=== PATIENT | female | born 1935 | race Caucasian/White ===

== ENCOUNTER 2020-07-14 19:33 | Emergency (ER) | payer MEDICARE, OTHER, MEDICAID, SELFPAY ==
--- NOTE | 2020-07-14 | ECG_ITS ---
Test Reason : SYNCOPE Blood Pressure : / mmHG Vent. Rate : 077 BPM Atrial Rate : 077 BPM P-R Int : 140 ms QRS Dur : 108 ms QT Int : 420 ms P-R-T Axes : 055 -44 053 degrees QTc Int : 475 ms Sinus rhythm with marked sinus arrhythmia Left axis deviation Incomplete right bundle branch block Nonspecific T wave abnormality Prolonged QT Abnormal ECG When compared with ECG of 19-NOV-2019 09:03, No significant change was found Referred By: Generic ED Physician Electronically Signed By:David Chan
[2020-07-14 19:46] VITALS: BP 146/83; BP 169/104; PULSE 76; PULSE 87; RESP 20; TEMP 36.7; O2SAT 98; BMI 32.4
--- NOTE | 2020-07-14 20:19 | XR_ITS ---
EXAMINATION: XR CHEST CLINICAL INFORMATION: Chest pain COMPARISON: 12/11/2017 TECHNIQUE: Frontal view of the chest was obtained. FINDINGS: No significant abnormality is noted involving the heart, lungs, mediastinum, bony thorax or soft tissues. Again noted is prominent costochondral calcification on the right. The aorta demonstrates dense mural calcification. XR/XR chest 1V IMPRESSION: No acute intrathoracic disease.
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
[2020-07-14 21:08] LABS: MANUAL DIFF FLAG NO
[2020-07-14 21:10] LABS: Basophils Absolute Auto 0.1 X10*3/uL (0.0-0.2); Basophils Percent Auto 0.9 % (0-2); Eosinophils Absolute Auto 0.6 X10*3/uL (0.0-0.4); Eosinophils Percent Auto 4.9 % (0-4); Hematocrit 40.1 % (37-47); Hemoglobin 12.8 g/dl (12.0-16.0); Imm Gran Abs Auto 0.03 X10*3/uL (0.00-0.03); Imm Gran Pct Auto 0.2 % (0.0-0.4); Lymphocytes Absolute Auto 1.5 X10*3/uL (1.2-4.9); Mean Corpuscular HGB Conc 31.9 g/dl (31.0-35.0); Mean Corpuscular Hemoglobin 30.5 pg (27.0-33.0); Mean Corpuscular Volume 95.5 fL (80-98); Mean Platelet Volume 11.3 fL (9.4-12.3); Monocytes Absolute Auto 1.2 X10*3/uL (0.1-1.2); Monocytes Percent Auto 9.4 % (2-11); Neutrophils Percent Auto 72.6 % (45-73); Platelet Count 236 X10*3/uL (160-400); Red Cell Distribution Width 13.9 % (11.0-16.0); White Blood Count 12.3 X10*3/uL (4.8-10.8)
[2020-07-14 21:31] LABS: Anion Gap 13 (12-20); Blood Urea Nitrogen 21 mg/dL (9-16); Calcium 8.4 mg/dL (8.4-10.2); Carbon Dioxide 30 mmol/L (22-29); Chloride 104 mmol/L (96-108); Creatinine Clr Calc Pharmacy 36.1; Estimated Glomerular Filt Rate 44; Glucose Random 110 mg/dL (60-115); Sodium 143 mmol/L (135-145)
[2020-07-14 21:37] LABS: Troponin-I High Sensitivity 16.4 ng/L (<3.5-17.0)
== END 2020-07-14 22:41 | disposition home or self-care (01) ==
PROVIDERS: Emergency Provider Internal Medicine
DX: R07.9 Chest pain, unspecified (principal); F41.9 Anxiety disorder, unspecified; S50.812A Abrasion of left forearm, initial encounter; Y04.2XXA Assault by strike against or bumped into by another person, initial encounter; I10 Essential (primary) hypertension; F03.91 Unspecified dementia, unspecified severity, with behavioral disturbance; Y93.9 Activity, unspecified; Y92.019 Unspecified place in single-family (private) house as the place of occurrence of the external cause; Y99.9 Unspecified external cause status
CPT/HCPCS: 36415; 71045; 80048; 84484; 85025; 93005; 99283

== ENCOUNTER 2020-07-16 06:04 | Emergency (ER) | payer MEDICARE, OTHER, MEDICAID, SELFPAY ==
[2020-07-16 06:20] VITALS: BP 160/90; PULSE 70; RESP 18; TEMP 36.2; O2SAT 99; BMI 25.6
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
--- NOTE | 2020-07-16 06:44 | ECG_ITS ---
Test Reason : WEAKNESS Blood Pressure : / mmHG Vent. Rate : 059 BPM Atrial Rate : 059 BPM P-R Int : 134 ms QRS Dur : 102 ms QT Int : 466 ms P-R-T Axes : 046 -41 039 degrees QTc Int : 461 ms Sinus bradycardia Left axis deviation Incomplete right bundle branch block Septal infarct , age undetermined Abnormal ECG When compared with ECG of 14-JUL-2020 20:01, Septal infarct is now Present Nonspecific T wave abnormality now evident in Inferior leads Inverted T waves have replaced nonspecific T wave abnormality in Lateral leads Referred By: Guy Ramirez Electronically Signed By:David Chan
[2020-07-16 07:52] LABS: Prothrombin Time 12.1 SEC (10.8-13.0)
[2020-07-16 07:54] LABS: Partial Thromboplastin Time 32.8 SEC (24.1-38.0)
[2020-07-16 08:14] LABS: Troponin-I High Sensitivity 16.4 ng/L (<3.5-17.0)
[2020-07-16 09:10] LABS: Glucose Urine UA NEG (NEG); Leukocyte Esterase Urine 2+ (NEG); Nitrite Urine POS (NEG); Urine Blood NEG (NEG); Urine Ketones NEG (NEG); Urine Protein NEG (NEG-TRACE)
[2020-07-16 09:17] LABS: Appearance Urine HAZY; Color Urine YELLOW
[2020-07-16 09:25] LABS: Bacteria Urine 4+ /LPF; RBC Urine 0-2 /HPF (0); Squamous Epithelial Cell Urine 2+ /LPF; WBC Urine 30-49 /HPF (0-4)
[2020-07-16 10:44] LABS: MANUAL DIFF FLAG NO
[2020-07-16 10:50] VITALS: BP 188/72; PULSE 83; RESP 17; TEMP 37.6; O2SAT 94
[2020-07-16 10:59] LABS: Basophils Absolute Auto 0.1 X10*3/uL (0.0-0.2); Basophils Percent Auto 0.6 % (0-2); Eosinophils Absolute Auto 0.7 X10*3/uL (0.0-0.4); Eosinophils Percent Auto 5.2 % (0-4); Imm Gran Abs Auto 0.04 X10*3/uL (0.00-0.03); Imm Gran Pct Auto 0.3 % (0.0-0.4); Lymphocytes Absolute Auto 1.7 X10*3/uL (1.2-4.9); Lymphocytes Percent Auto 13.5 % (20-40); Mean Corpuscular Hemoglobin 29.4 pg (27.0-33.0); Mean Platelet Volume 11.8 fL (9.4-12.3); Monocytes Absolute Auto 1.2 X10*3/uL (0.1-1.2); Monocytes Percent Auto 9.9 % (2-11); Neutrophils Absolute Auto 8.8 X10*3/uL (2.0-8.3); Neutrophils Percent Auto 70.5 % (45-73); Platelet Count 228 X10*3/uL (160-400); Red Blood Count 4.42 X10*6/uL (4.20-5.50); White Blood Count 12.5 X10*3/uL (4.8-10.8)
[2020-07-16 11:07] LABS: COVID-19 Test Negative (Negative)
[2020-07-16 11:13] VITALS: PULSE 96; RESP 16; O2SAT 97
[2020-07-16 11:27] LABS: Anion Gap 14 (12-20); Blood Urea Nitrogen 19 mg/dL (9-16); Calcium 8.8 mg/dL (8.4-10.2); Carbon Dioxide 27 mmol/L (22-29); Chloride 106 mmol/L (96-108); Creatinine Clr Calc Pharmacy 37.8; Estimated Glomerular Filt Rate 56; Glucose Random 104 mg/dL (60-115); Sodium 143 mmol/L (135-145)
[2020-07-16] MEDS: cefTRIAXone sodium 1 GM in 0.9 % Sodium Chloride 50 ML IV (11:30)
[2020-07-16 11:36] VITALS: BP 145/85; PULSE 65; RESP 17; TEMP 36.6; O2SAT 95
[2020-07-16 12:06] LABS: Lactic Acid 0.8 mmol/L (0.5-2.0)
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
--- NOTE | 2020-07-16 14:32 | MHC.CM.PN ---
Per conversation with pt son, referrals were placed to several intermediate facilities in the [facility] and [place] areas. All but one facility has declined the referral. [facility] will consider admission Saturday as they are not comfortable accepting pt on the weekend due to behaviors. More referrals to be placed. Pt will need SNF placement for STR likely to transition to LTC
--- NOTE | 2020-07-16 16:37 | MHC.CM.PN ---
CM CONTACTED PTS SON, VERNON TO PROVIDE UPDATES ON BED SEARCH. HE REPORTS HE IS WILLING TO HAVE PT PLACED FARTHER AWAY TO FIND A GOOD FACILITY AND WOULD PREFER ONE WITH MEMORY CARE SERVICES. REFERRAL SENT TO SEVERAL MORE FACILITIES. CM TO RESUME BED SEARCH TOMORROW MORNING
--- NOTE | 2020-07-16 19:06 | PC.NURSE ---
REPORT TAKEN FROM ALLY BERNAL, FIRST CONTACT WITH PT. SITTING UP IN BED SKIN PWD RESPIRATIONS EVEN UNLABORED, NO COMPLAINTS AT THIS TIME. CASE MANAGEMENT BEDSEARCH. GIVEN SNACK AND PO FLUIDS. WILL CONTINUE TO MONITOR.
[2020-07-16 20:00] VITALS: RESP 16
--- NOTE | 2020-07-16 21:10 | PC.NURSE ---
PT TEARFUL ABOUT BEING ALONE IN HOSPITAL- OFFERED TO CALL FAMILY. STEPHENIE LUGO COULD NOT HEAR RN ON PHONE. THIS RN SPOKE WITH SON VERNON WHO EXPRESSED CONCERN THAT SPEAKING WITH HER MAY EXACERBATE THE SITUATION. RN SPOKE WITH YONG AND REASSURED HER SUCCESSFULLY. MEDICATED WITH PO ABX. ATE 100% OF SANDWICH AND PUDDING.
[2020-07-16 22:00] VITALS: RESP 16
[2020-07-17 02:00] VITALS: BP 167/83; PULSE 73; RESP 16; TEMP 37.2; O2SAT 97
--- NOTE | 2020-07-17 02:03 | PC.NURSE ---
IV ACCESS REMOVED PER PT REQUEST.
--- NOTE | 2020-07-17 02:46 | PC.NURSE ---
PT RESTING IN BED SKIN PWD RESPIRATIONS EVEN UNLABORED. VSS. NO COMPLAINTS AT THIS TIME. CASE MANAGEMENT BED SEARCH.
--- NOTE | 2020-07-17 04:58 | PC.NURSE ---
PT MOVED TO RM 17 FOR COMFORT. NEW BEDDING PROVIDED, REPOSITIONED FOR COMFORT. LIGHTS TURNED DOWN. OFFERS NO COMPLAINTS AT THIS TIME.
--- NOTE | 2020-07-17 05:59 | PC.NURSE ---
PT RESTING IN BED EYES CLOSED, SKIN PWD RESPIRATIONS EVEN UNLABORED, NO DISTRESS NOTED. AWAITS CM BED.
--- NOTE | 2020-07-17 07:26 | PC.NURSE ---
report taken from jesenia eng pt lying in stretcher, nad. asking to be put on bed, transferred to commode w one assist. put back in stretcher, given breakfast. eating on own without issues. pt is awaiting case mgmt eloy.
--- NOTE | 2020-07-17 07:57 | PC.NURSE ---
pt cleaned of incontinent loose bm. able to help reposition, skin appears in tact.
[2020-07-17] MEDS: predniSONE 5 MG TABLET PO (08:49)
[2020-07-17] MEDS: DULoxetine HCl 30 MG CAPSULE.DR PO ×2 (08:49→20:31)
[2020-07-17] MEDS: Atorvastatin Calcium 40 MG TABLET PO (08:49)
[2020-07-17] MEDS: Donepezil HCl 5 MG TABLET PO (08:49)
--- NOTE | 2020-07-17 08:54 | PC.NURSE ---
medicated w meds per emar, tolerating po w/o issue. pt pleasently confused, frequently asking when she will see the doctor . pt redirected about case mgmt status and requires frequent redirection. pt calmly watching tv in stretcher. juan carlos.
--- NOTE | 2020-07-17 11:14 | PC.NURSE ---
pt cleaned of small amount incontinent bm, linens changed. pt boosted back up in stretcher, repositioned to r side using pillows.
--- NOTE | 2020-07-17 12:42 | PC.NURSE ---
pt pivoted over to commode w 1 assist for void. back to bed w/o incident.
[2020-07-17 19:25] VITALS: BP 187/78; PULSE 77; RESP 20; TEMP 36.7; O2SAT 95
--- NOTE | 2020-07-17 19:26 | PC.NURSE ---
Report taken from jen Flores RN resuming care. Pt requesting to use the bedpan, pt voiding a small brown liquid stool. Pt provided shabbir care and a complete bed change. Pt resting in bed, VSS, BP noted to be elevated. Warm blanket provided for comfort. Continue to monitor.
--- NOTE | 2020-07-17 20:18 | PC.NURSE ---
MD Pulido aware of HTN, plan to monitor BP at this time as pt is asymptomatic.
--- NOTE | 2020-07-17 20:33 | PC.NURSE ---
Pt medicated per MAR.
[2020-07-17 21:24] VITALS: BP 189/94; PULSE 83; RESP 16
[2020-07-17 22:45] VITALS: BP 193/124; PULSE 103; RESP 20; O2SAT 95
--- NOTE | 2020-07-17 22:51 | PC.NURSE ---
This RN discussing elevated BP with pt, pt reporting a history of HTN, states she takes medication for it but unsure of what. Pt telling this RN Do not call my this late! He would be so mad!! This RN discussing care with pharm, per pharmacy, pt had a script for Losartan 25 mg but the prescription in February.
[2020-07-17 23:23] VITALS: BP 193/127; PULSE 98
[2020-07-17] MEDS: Losartan Potassium 25 MG TABLET PO (23:23)
--- NOTE | 2020-07-17 23:25 | PC.NURSE ---
Pt requesting to use the commode, two assist OOB and onto commode, pt extremely weak, unable to stand on her own. Pt voiding in commode, watery brown colored stool. Pt reports diarrhea intermittently throughout the day today. This RN discussing HTN with , pt medicated with Losartan per SEP. Continue to monitor.
[2020-07-18] VITALS (7 sets, daily range): BP systolic 114–183; BP diastolic 75–95; PULSE 74–93; RESP 16–20; O2SAT 93–95
--- NOTE | 2020-07-18 05:20 | PC.NURSE ---
Pt assisted OOB onto commode, voiding easily. Pt provided with a complete bed changed, assisted back into bed into POC. VSS, continue to monitor.
--- NOTE | 2020-07-18 07:08 | ED.CHESTPAIN ---
HPI - Chest Pain General Chief Complaint: Chest Pain Stated Complaint: chest pain Time Seen by Provider: 07/16/20 06:40 Source: patient and EMS Mode of arrival: EMS Limitations: altered mental status (Dementia) Related Data Home Medications Medication Instructions Recorded Confirmed atorvastatin 1 tab PO DAILY 07/17/20 07/17/20 donepezil 1 tab PO DAILY 07/17/20 07/17/20 duloxetine 1 cap PO BID 07/17/20 07/17/20 prednisone 5 tab PO QAM 07/17/20 07/17/20 Previous Rx's Medication Instructions Recorded cefuroxime axetil 500 mg PO BID 3 Days #6 tab 07/16/20 Allergies Allergy/AdvReac Type Severity Reaction Status Date / Time yariel [YARIEL] Allergy Unknown HIVES Verified 07/14/20 19:52 PMFSH Past Medical History Medical History Hypertension Social History Social History Smoked in Last 30 Days: No Use of substances other than those prescribed or required for medical reasons: No Advance Directives: No Physical Exam Vital Signs: Vital Signs: Last Vital Signs Temp 98.1 F 07/17/20 19:25 Pulse 77 07/18/20 05:45 Resp 16 07/18/20 05:45 BP 183/85 H 07/18/20 05:45 Pulse Ox 93 07/18/20 05:45 Body Mass Index 25.6 Course Course Course Narrative: DR. RAMIREZ SAW PATIENT FROM BEGINNING I ASSUMED CARE ON 07/18/2020 - no acute events overnight, PO antibiotics for UTI culture so far GNR - VS stable, pending placement at this time MDM - Chest Pain Lab Data Result diagrams: 07/16/20 10:36 07/16/20 10:37 Labs: Lab Results 07/16/20 07/16/20 07/16/20 Range/Units 07:32 07:32 09:00 WBC (4.8-10.8) X10*3/uL RBC (4.20-5.50) X10*6/uL Hgb (12.0-16.0) g/dl Hct (37-47) % MCV (80-98) fL MCH (27.0-33.0) pg MCHC (31.0-35.0) g/dl RDW (11.0-16.0) % Plt Count (160-400) X10*3/uL MPV (9.4-12.3) fL Immature Gran % (Auto) (0.0-0.4) % Neut % (Auto) (45-73) % Lymph % (Auto) (20-40) % [place] % (Auto) (2-11) % Eos % (Auto) (0-4) % Baso % (Auto) (0-2) % Lymph # (Auto) (1.2-4.9) X10*3/uL [place] # (Auto) (0.1-1.2) X10*3/uL Eos # (Auto) (0.0-0.4) X10*3/uL Baso # (Auto) (0.0-0.2) X10*3/uL Abs Immat Gran (auto) (0.00-0.03) X10*3/uL Absolute Neuts (auto) (2.0-8.3) X10*3/uL Absolute Nucleated RBC (0.0-0.012) X10*3/uL Nucleated RBC % (auto) (0.0-0.2) /100WBC PT 12.1 (10.8-13.0) SEC INR 1.0 (0.9-1.1) APTT 32.8 (24.1-38.0) SEC Sodium (135-145) mmol/L Potassium (3.3-5.1) mmol/l Chloride (96-108) mmol/L Carbon Dioxide (22-29) mmol/L Anion Gap (12-20) BUN (9-16) mg/dL Creatinine (0.5-1.4) mg/dL Estim Creat Clear Calc Estimated GFR Random Glucose (60-115) mg/dL Lactic Acid (0.5-2.0) mmol/L Calcium (8.4-10.2) mg/dL Troponin I High Sens 16.4 (<3.5-17.0) ng/L Urine Color YELLOW Urine Appearance HAZY Urine pH 6.0 (5.0-8.0) Ur Specific [place] 1.020 (1.005-1.025) Urine Protein NEG (NEG-TRACE) MG/DL Urine Glucose (UA) NEG (NEG) MG/DL Urine Ketones NEG (NEG) MG/DL Urine Blood NEG (NEG) Urine Nitrite POS H (NEG) Ur Leukocyte Esterase 2+ H (NEG) Urine RBC 0-2 (0) /HPF Urine WBC 30-49 H (0-4) /HPF Ur Squamous Epith Cells 2+ /LPF Urine Bacteria 4+ /LPF COVID-19 (SUSAAN) (Negative) COVID-19 Clin Com 07/16/20 07/16/20 07/16/20 Range/Units 10:36 10:37 10:37 WBC 12.5 H (4.8-10.8) X10*3/uL RBC 4.42 (4.20-5.50) X10*6/uL Hgb 13.0 (12.0-16.0) g/dl Hct 42.0 (37-47) % MCV 95.0 (80-98) fL MCH 29.4 (27.0-33.0) pg MCHC 31.0 (31.0-35.0) g/dl RDW 14.0 (11.0-16.0) % Plt Count 228 (160-400) X10*3/uL MPV 11.8 (9.4-12.3) fL Immature Gran % (Auto) 0.3 (0.0-0.4) % Neut % (Auto) 70.5 (45-73) % Lymph % (Auto) 13.5 L (20-40) % [place] % (Auto) 9.9 (2-11) % Eos % (Auto) 5.2 H (0-4) % Baso % (Auto) 0.6 (0-2) % Lymph # (Auto) 1.7 (1.2-4.9) X10*3/uL [place] # (Auto) 1.2 (0.1-1.2) X10*3/uL Eos # (Auto) 0.7 H (0.0-0.4) X10*3/uL Baso # (Auto) 0.1 (0.0-0.2) X10*3/uL Abs Immat Gran (auto) 0.04 H (0.00-0.03) X10*3/uL Absolute Neuts (auto) 8.8 H (2.0-8.3) X10*3/uL Absolute Nucleated RBC 0.000 (0.0-0.012) X10*3/uL Nucleated RBC % (auto) 0.0 (0.0-0.2) /100WBC PT (10.8-13.0) SEC INR (0.9-1.1) APTT (24.1-38.0) SEC Sodium 143 (135-145) mmol/L Potassium 4.0 (3.3-5.1) mmol/l Chloride 106 (96-108) mmol/L Carbon Dioxide 27 (22-29) mmol/L Anion Gap 14 (12-20) BUN 19 H (9-16) mg/dL Creatinine 0.95 (0.5-1.4) mg/dL Estim Creat Clear Calc 37.8 Estimated GFR 56 Random Glucose 104 (60-115) mg/dL Lactic Acid (0.5-2.0) mmol/L Calcium 8.8 (8.4-10.2) mg/dL Troponin I High Sens (<3.5-17.0) ng/L Urine Color Urine Appearance Urine pH (5.0-8.0) Ur Specific [place] (1.005-1.025) Urine Protein (NEG-TRACE) MG/DL Urine Glucose (UA) (NEG) MG/DL Urine Ketones (NEG) MG/DL Urine Blood (NEG) Urine Nitrite (NEG) Ur Leukocyte Esterase (NEG) Urine RBC (0) /HPF Urine WBC (0-4) /HPF Ur Squamous Epith Cells /LPF Urine Bacteria /LPF COVID-19 (SUSANA) Negative (Negative) COVID-19 Clin Com See Note 07/16/20 Range/Units 11:24 WBC (4.8-10.8) X10*3/uL RBC (4.20-5.50) X10*6/uL Hgb (12.0-16.0) g/dl Hct (37-47) % MCV (80-98) fL MCH (27.0-33.0) pg MCHC (31.0-35.0) g/dl RDW (11.0-16.0) % Plt Count (160-400) X10*3/uL MPV (9.4-12.3) fL Immature Gran % (Auto) (0.0-0.4) % Neut % (Auto) (45-73) % Lymph % (Auto) (20-40) % [place] % (Auto) (2-11) % Eos % (Auto) (0-4) % Baso % (Auto) (0-2) % Lymph # (Auto) (1.2-4.9) X10*3/uL [place] # (Auto) (0.1-1.2) X10*3/uL Eos # (Auto) (0.0-0.4) X10*3/uL Baso # (Auto) (0.0-0.2) X10*3/uL Abs Immat Gran (auto) (0.00-0.03) X10*3/uL Absolute Neuts (auto) (2.0-8.3) X10*3/uL Absolute Nucleated RBC (0.0-0.012) X10*3/uL Nucleated RBC % (auto) (0.0-0.2) /100WBC PT (10.8-13.0) SEC INR (0.9-1.1) APTT (24.1-38.0) SEC Sodium (135-145) mmol/L Potassium (3.3-5.1) mmol/l Chloride (96-108) mmol/L Carbon Dioxide (22-29) mmol/L Anion Gap (12-20) BUN (9-16) mg/dL Creatinine (0.5-1.4) mg/dL Estim Creat Clear Calc Estimated GFR Random Glucose (60-115) mg/dL Lactic Acid 0.8 (0.5-2.0) mmol/L Calcium (8.4-10.2) mg/dL Troponin I High Sens (<3.5-17.0) ng/L Urine Color Urine Appearance Urine pH (5.0-8.0) Ur Specific [place] (1.005-1.025) Urine Protein (NEG-TRACE) MG/DL Urine Glucose (UA) (NEG) MG/DL Urine Ketones (NEG) MG/DL Urine Blood (NEG) Urine Nitrite (NEG) Ur Leukocyte Esterase (NEG) Urine RBC (0) /HPF Urine WBC (0-4) /HPF Ur Squamous Epith Cells /LPF Urine Bacteria /LPF COVID-19 (SUSANA) (Negative) COVID-19 Clin Com Discharge Plan Discharge Clinical Impression: Dementia Qualifiers: Dementia type: Alzheimer's Alzheimer's disease onset: late-onset Dementia behavioral disturbance: with behavioral disturbance Qualified Code(s): G30.1 - Alzheimer's disease with late onset UTI (urinary tract infection) Qualifiers: Urinary tract infection type: acute cystitis Hematuria presence: without hematuria Qualified Code(s): N30.00 - Acute cystitis without hematuria Patient Disposition: [facility] SNF Instructions: Alzheimer Disease (DC), Urinary Tract Infection in Older Adults (ED) Additional Instructions: Patient has possible UTI will give antibiotic for total 3 days Prescriptions: New cefuroxime axetil 500 mg tablet 500 mg PO BID 3 Days Qty: 6 RF: 0 No Action atorvastatin 40 mg tablet 1 tab PO DAILY RF: 0 donepezil 5 mg tablet 1 tab PO DAILY RF: 0 prednisone 1 mg tablet 5 tab PO QAM RF: 0 duloxetine 30 mg capsule,delayed release(DR/EC) 1 cap PO BID RF: 0
[2020-07-18] MEDS: Atorvastatin Calcium 40 MG TABLET PO (08:14)
[2020-07-18] MEDS: DULoxetine HCl 30 MG CAPSULE.DR PO (08:14)
[2020-07-18] MEDS: Donepezil HCl 5 MG TABLET PO (08:14)
[2020-07-18] MEDS: LORazepam 1 MG TABLET PO (08:14)
[2020-07-18] MEDS: predniSONE 5 MG TABLET PO (08:14)
--- NOTE | 2020-07-18 08:34 | PC.NURSE ---
Report from DOLORES Burrell. Pt remains confused, constantly screaming that she is . Medicated with Ativan for agitation along with scheduled am meds. Pt incontinent large amt loose stool. Changed, repositioned, currently resting comfortably on stretcher.
--- NOTE | 2020-07-18 14:41 | PC.NURSE ---
patient remains confused, resting quietly on stretcher. Tearful at times. Refused lunch. Awaiting disposition from case management
--- NOTE | 2020-07-18 15:16 | MHC.CM.ED ---
Pt very confused. Unable to speak with her for assessment. Spoke with son, Krishna ([phone]). Krishna tells CM that pt's dementia is worsening and his 87 y/o father can no longer care for pt. Pt has had some aggressive behaviors towards . None noted while in ED. PT recommended STR and Krishna is accepting. Has no requests. Referrals placed locally. HCP obtained from hospitalization at [facility] and scanned into allscripts
--- NOTE | 2020-07-18 15:35 | MHC.CM.ED ---
[facility] accepted pt. Message left with son, Krishna. Awaiting time to book ambulance. and RN aware
--- NOTE | 2020-07-18 16:10 | MHC.CM.ED ---
Second call placed to son Krishna with regards to placement at [facility] and transportation arranged for 5pm. Second Covid requested. Order taken. RN aware.
[2020-07-18 17:37] LABS: COVID-19 Test Negative (Negative)
== END 2020-07-18 18:02 | disposition skilled nursing facility (03) ==
PROVIDERS: Emergency Medicine; Emergency Provider Internal Medicine
DX: G30.1 Alzheimer's disease with late onset (principal); N30.00 Acute cystitis without hematuria; I10 Essential (primary) hypertension; Z20.822 Contact with and (suspected) exposure to COVID-19
CPT/HCPCS: 36415; 80048; 81001; 83605; 84484; 85025; 85610; 85730; 87040; 87086; 87088; 87186; 87635; 93005; 97161; 99284; J0696

== ENCOUNTER 2021-02-28 22:10 | Emergency (ER) | payer MEDICARE, OTHER, MEDICAID, SELFPAY ==
--- NOTE | ~2021-02-28 | XR_ITS ---
EXAMINATION: XR CHEST CLINICAL INFORMATION: Shortness of breath COMPARISON: 07/14/2020 TECHNIQUE: Frontal view of the chest was obtained. FINDINGS: Lung volumes are symmetric. There is subtle patchy opacity at the right base laterally. No evidence of pneumothorax, pleural effusion, or pulmonary edema. Cardiac size is within normal limits. Calcification is present at the aortic arch. No acute osseous findings are seen. XR/XR chest 1V IMPRESSION: Subtle patchy opacity at the lateral right base suggesting early developing consolidation in the proper clinical setting. Short-term radiographic follow-up would be helpful.
[2021-02-28 22:23] VITALS: BP 85/63; BP 92/61; PULSE 65; PULSE 67; RESP 18; TEMP 37.2; O2SAT 95; BMI 22.3
--- NOTE | 2021-02-28 22:27 | ED.SOB ---
HPI - SOB/Dyspnea General Chief Complaint: Dyspnea Stated Complaint: DIFFICULTY BREATHING Time Seen by Provider: 02/28/21 22:27 Source: RN notes reviewed Mode of arrival: EMS History of Present Illness HPI Narrative: Patient history of dementia , hypertension, weakness came from care home where she was admitted today as staff noticed patient has low blood pressure of 74/45 saturating 89% dropped to 77% on arrival patient was saturating 95% at room air denying any chest pain at this time no fever no cough no abdominal pain no nausea no vomiting. Patient is DNR DNI Related Data Home Medications Medication Instructions Recorded Confirmed atorvastatin 40 mg tablet 1 tab PO DAILY 07/17/20 07/17/20 donepezil 5 mg tablet 1 tab PO DAILY 07/17/20 07/17/20 duloxetine 30 mg capsule,delayed 1 cap PO BID 07/17/20 07/17/20 release prednisone 1 mg tablet 5 tab PO QAM 07/17/20 07/17/20 Previous Rx's Medication Instructions Recorded cefuroxime axetil 500 mg tablet 500 mg PO BID 3 Days #6 tab 07/16/20 amoxicillin 875 mg-potassium 1 tab PO BID #20 tab 02/28/21 clavulanate 125 mg tablet (Augmentin) Allergies Allergy/AdvReac Type Severity Reaction Status Date / Time yariel [YARIEL] Allergy Unknown HIVES Verified 07/14/20 19:52 Review of Systems Review of Systems: Yes Unobtainable due to mental status [facility] Past Medical History Medical History Hypertension Social History Social History Alcohol intake: never Patient Tobacco Use Status: Former Tobacco user Use of substances other than those prescribed or required for medical reasons: No Advance Directives: No Advance Directives Information Provided: No Physical Exam Vital Signs: Vital Signs: Last Vital Signs Temp 98.9 F 02/28/21 22:23 Pulse 65 02/28/21 22:23 Resp 13 02/28/21 22:36 BP 92/61 02/28/21 22:23 Pulse Ox 95 02/28/21 22:23 Body Mass Index 22.3 Appearance: Alert. Oriented X2 No acute distress. Eyes: PERRLA, No Nystagmus ENT: Pharynx normal. Oral Mucosa moist Neck: Normal inspection. Neck supple. CVS: Normal heart rate and rhythm. Pulses normal. Respiratory: No respiratory distress. Equal air entry bilateral, no wheezing/rales/rhonchi Abdomen: Soft and nontender. Bowel sounds are present, no mass palpable, no CVA tenderness Skin: Skin warm and dry. Normal skin color. Normal skin turgor. Extremities: No lower extremity edema. No calf tenderness Neuro: Oriented X 2. No motor deficit. No sensory deficit.No cerebellar signs , cranial nerves II-XII intact Const: General: comfortable, no acute distress and alert Nutritional Appearance: thin Orientation/consciousness: oriented to person HENMT: Head: Yes normocephalic Ears: hearing grossly normal bilaterally Mouth: Normal oral and palatal mucosa present Eyes: General: appearance normal, both eyes and all related structures Neck: Neck: Yes normal visual inspection and Yes full ROM Resp: Effort & Inspection: normal respiratory effort and able to speak in complete sentences Auscultation: clear to auscultation bilaterally, no crackles and no rales Cardio: Palpation: normal PMI Rate: regular rate Rhythm: regular rhythm Heart sounds: S1 normal heart sound present and S2 normal heart sound present Peripheral pulses: Peripheral pulses 2+ throughout GI: Inspection: Yes normal to inspection Palpation (GI): Soft to palpation and nontender Auscultation: normal bowel sounds : General: Yes no CVA tenderness Back/Spine/Pelvis: Back: no CVA tenderness Skin: General skin exam: no rashes or lesions noted Neuro: General: oriented to person and moves all extremities Extrem: General: Yes normal to inspection, Yes full ROM and Yes no calf tenderness MDM - SOB/Dyspnea MDM Narrative Medical decision making narrative: Patient DNR DNI refused any labs with history of frequent hypoxia in the ER patient is saturating 95% at room air no significant respiratory distress notice clinically patient is not septic EKG without any ischemic changes chest x-ray showed possible right base infiltrate? Aspiration, will discharge patient back to care home on Augmentin advised to follow with PCP Lab Data Attestation: I reviewed the patient's lab results. Labs: Lab Results 02/28/21 Range/Units 22:34 COVID-19 (SUSANA) Negative (Negative) COVID-19 Clin Com See Note Imaging Data Chest x-ray: Radiologist's impression: Patient: Mary Huerta MR#: [id number] : 1935 Acct:[id number] Age/Sex: 86 / F ADM Date: 02/28/21 Loc: HO.ED Attending Dr: Ordering Physician: Guy Gallo MD Date of Service: 02/28/21 Procedure(s): XR chest 1V Accession Number(s): [id number] cc: Guy Gallo MD~ EXAMINATION: XR CHEST CLINICAL INFORMATION: Shortness of breath COMPARISON: 07/14/2020 TECHNIQUE: Frontal view of the chest was obtained. FINDINGS: Lung volumes are symmetric. There is subtle patchy opacity at the right base laterally. No evidence of pneumothorax, pleural effusion, or pulmonary edema. Cardiac size is within normal limits. Calcification is present at the aortic arch. No acute osseous findings are seen. XR/XR chest 1V IMPRESSION: Subtle patchy opacity at the lateral right base suggesting early developing consolidation in the proper clinical setting. Short-term radiographic follow-up would be helpful. ? Dictated By: RONAL ACOSTA MD Signed By: <Electronically signed by RONAL ACOSTA MD in OV> ECG Data Attestation: I personally reviewed and interpreted this ECG as follows: Interpretation: Normal sinus rhythm heart rate 78 beats per minute incomplete right bundle-branch block left anterior fascicular block nonspecific ST T wave changes no acute ischemic Discharge Plan Discharge Clinical Impression: Community acquired pneumonia Qualifiers: Laterality: right Lung location: lower lobe of lung Qualified Code(s): J18.9 - Pneumonia, unspecified organism Patient Disposition: Xfer SNF Transfer Details: Possible early pneumonia right lung Instructions: Community Acquired Pneumonia (ED) Additional Instructions: Patient has possible early pneumonia on the left side of the lung Take antibiotic as prescribed Follow-up with PCP Oxygen as needed for hypoxia Prescriptions: New amoxicillin-pot clavulanate [Augmentin] 875-125 mg tablet 1 tab PO BID Qty: 20 RF: 0 No Action cefuroxime axetil 500 mg tablet 500 mg PO BID 3 Days Qty: 6 RF: 0 atorvastatin 40 mg tablet 1 tab PO DAILY RF: 0 donepezil 5 mg tablet 1 tab PO DAILY RF: 0 prednisone 1 mg tablet 5 tab PO QAM RF: 0 duloxetine 30 mg capsule,delayed release(DR/EC) 1 cap PO BID RF: 0 Interventions: ED Discharge Assessment Last Done: 03/01/21 00:10 Discharge Date/Time: 03/01/21 00:14
[2021-02-28 22:36] VITALS: RESP 13
--- NOTE | 2021-02-28 22:36 | ECG_ITS ---
Test Reason : DYSPNEA Blood Pressure : / mmHG Vent. Rate : 078 BPM Atrial Rate : 078 BPM P-R Int : 146 ms QRS Dur : 114 ms QT Int : 520 ms P-R-T Axes : 055 -60 081 degrees QTc Int : 592 ms Sinus rhythm with marked sinus arrhythmia Incomplete right bundle branch block Left anterior fascicular block Nonspecific T wave abnormality Abnormal ECG When compared with ECG of 16-JUL-2020 07:36, Criteria for Septal infarct are no longer Present Nonspecific T wave abnormality now evident in Anterior leads Nonspecific T wave abnormality has replaced inverted T waves in Lateral leads QT has lengthened Referred By: Guy Gallo Electronically Signed By:ABE FERNANDEZ
[2021-02-28 22:54] LABS: COVID-19 Test Negative (Negative); IDNOW Serial# 9DD0AD1C
--- NOTE | 2021-02-28 23:12 | PC.NURSE ---
Patient refusing all blood work. CXR and Covid test completed. Patient negative for Covid 19
== END 2021-03-01 00:14 | disposition skilled nursing facility (03) ==
LOC: HO.ED 03-01 00:04
PROVIDERS: Emergency Provider Internal Medicine
DX: J18.9 Pneumonia, unspecified organism (principal); R06.00 Dyspnea, unspecified; I10 Essential (primary) hypertension; Z79.899 Other long term (current) drug therapy; Z20.822 Contact with and (suspected) exposure to COVID-19; Z87.891 Personal history of nicotine dependence
CPT/HCPCS: 36415; 71045; 87635; 93005; 99283; 99284